=== PATIENT | female | born 1960 | race Caucasian/White ===

== ENCOUNTER → 2021-01-22 | Outpatient (CLI) | payer OTHER | END | disposition home or self-care (01) | LOC: EDBD 15:15 → CFH 15:15 | PROVIDERS: ATTEND Family Medicine | DX: N63.11 Unspecified lump in the right breast, upper outer quadrant (principal) | CPT/HCPCS: 76642; 77062; 77066; G0279 ==

== ENCOUNTER → 2021-01-29 | Outpatient (CLI) | payer OTHER ==
[~2021-01-29] MED LIST: LIDOCAINE 1%, 20ML ONE; LIDOCAINE 1%-EPI 1:100K, 20ML ONE; SODIUM BICARBONATE 4.0%, 5ML ONE
== END | disposition home or self-care (01) ==
LOC: CFH 07:26
PROVIDERS: ATTEND Family Medicine
DX: N63.13 Unspecified lump in the right breast, lower outer quadrant (principal); N63.11 Unspecified lump in the right breast, upper outer quadrant; N63.12 Unspecified lump in the right breast, upper inner quadrant; C50.511 Malignant neoplasm of lower-outer quadrant of right female breast; C50.411 Malignant neoplasm of upper-outer quadrant of right female breast; C50.211 Malignant neoplasm of upper-inner quadrant of right female breast; C77.3 Secondary and unspecified malignant neoplasm of axilla and upper limb lymph nodes; R59.0 Localized enlarged lymph nodes; Z17.0 Estrogen receptor positive status [ER+]
CPT/HCPCS: 19083; 19084; 38505; 76942; 77065; 88305; 88341; 88342; 88360; J3490

== ENCOUNTER → 2021-02-06 | Outpatient (CLI) | payer OTHER ==
[~2021-02-06] MED LIST changes: +NO REGULAR MEDS
== END | disposition home or self-care (01) ==
LOC: CFH 08:00
PROVIDERS: ATTEND Family Medicine
DX: R92.8 Other abnormal and inconclusive findings on diagnostic imaging of breast (principal); C50.912 Malignant neoplasm of unspecified site of left female breast; C77.3 Secondary and unspecified malignant neoplasm of axilla and upper limb lymph nodes
CPT/HCPCS: 19081; 77065; 88305; 88341; 88342; 88360; J3490

== ENCOUNTER 2021-03-12 11:18 | Outpatient (CLI) | payer OTHER ==
[2021-03-16] MEDS ORDERED: MIDAZOLAM 1 MG/ML, 5ML ONE (07:47)
[2021-03-16] MEDS ORDERED: FENTANYL PF 100 MCG/2ML ONE ×2 (07:47)
[2021-03-16] MEDS ORDERED: FLUMAZENIL 0.1 MG/1 ML, 5ML ONE (07:47)
[2021-03-16] MEDS ORDERED: NALOXONE 1 MG/ML, 2ML ONE (07:47)
[2021-03-16] MEDS ORDERED: CEFAZOLIN PMX 1GM/50ML 0 ML ONE (08:10)
== END 2021-03-12 23:59 | disposition home or self-care (01) ==
LOC: CVU 11:18
PROVIDERS: ATTEND Internal Medicine Hematology & Oncology
DX: C50.811 Malignant neoplasm of overlapping sites of right female breast (principal); I34.0 Nonrheumatic mitral (valve) insufficiency
CPT/HCPCS: 93306; 93356

== ENCOUNTER 2021-03-16 06:44 | Day surgery (SDC) | payer OTHER ==
[~2021-03-16] VITALS: Ht 162.6 cm; Wt 98.1 kg
[2021-03-16 07:20] VITALS: BP 141/85
[2021-03-16] MEDS ORDERED: NO REGULAR MEDS (07:45)
[2021-03-16] MEDS ORDERED: LIDOCAINE 1%, 20ML ONE (07:51)
[2021-03-16] MEDS ORDERED: LIDOCAINE 1%, 10ML ONE (08:16)
[2021-03-16] MEDS ORDERED: VANCOMYCIN 1,000 MG in SODIUM CHLORIDE 0.9% 100 ML IV ONE (08:30)
== END 2021-03-16 10:11 | disposition home or self-care (01) ==
LOC: OUT 06:44
PROVIDERS: ATTEND Internal Medicine Hematology & Oncology
DX: C50.811 Malignant neoplasm of overlapping sites of right female breast (principal); Z17.0 Estrogen receptor positive status [ER+]; Z88.0 Allergy status to penicillin; Z90.49 Acquired absence of other specified parts of digestive tract
CPT/HCPCS: 36561; 76937; 77001; 99156; 99157; C1788; C1894; J1642; J3370; J0690; J2250; J3010; J2310